=== PATIENT | male | born 1980 | race Caucasian/White ===

== ENCOUNTER 2019-04-18 08:19 | Outpatient (CLI) | payer OTHER, SELFPAY ==
--- NOTE | ~2019-04-18 | XR_ITS ---
XR wrist RT w scaphoid 04/18/2019 08:56 Indication: Right wrist pain Procedure: 5 views of the right wrist including scaphoid view Comparison: No prior studies for comparison. Findings: There is mild-moderate osteoarthritis of the triscaphe joint. No acute fracture or traumati c malalignment. No focal soft tissue abnormality. No radiopaque foreign bodies. There is lucency at t he proximal pole of the scaphoid, possibly a degenerative cyst. Impression: 1: Mild-moderate osteoarthritis of the triscaphe joint.. Reviewed, dictated and finalized at location A. ONIZER TESTER Impression: 1: Mild-moderate osteoarthritis of the triscaphe joint..
== END 2019-04-18 08:20 ==
PROVIDERS: PCP Family Medicine; Visit Provider Surgery Plastic and Reconstructive Surgery
DX: M19.031 Primary osteoarthritis, right wrist (principal)
CPT/HCPCS: 73110

== ENCOUNTER 2022-07-20 00:01 | Emergency (ER) | payer OTHER, SELFPAY ==
--- NOTE | ~2022-07-20 | XR_ITS ---
EXAMINATION: XR hand LT min 3V INDICATION: Left hand pain TECHNIQUE: Three views of the left hand are obtained. COMPARISON: None available FINDINGS: Bone alignment is normal. There is no fracture. There is mild osteoarthritis of multiple in terphalangeal joints. The soft tissues are unremarkable. IMPRESSION: 1. No acute osseous abnormality. Reviewed, dictated and finalized at location A.
[2022-07-20 00:07] VITALS: BP 140/95; PULSE 83; RESP 16; TEMP 36.7; O2SAT 98
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
== END 2022-07-20 02:40 | disposition home or self-care (01) ==
PROVIDERS: Emergency Provider Emergency Medicine; PCP Family Medicine
DX: S60.222A Contusion of left hand, initial encounter (principal); K21.9 Gastro-esophageal reflux disease without esophagitis; E78.1 Pure hyperglyceridemia; V86.59XA Driver of other special all-terrain or other off-road motor vehicle injured in nontraffic accident, initial encounter
CPT/HCPCS: 73130; 99283

== ENCOUNTER 2022-12-08 07:30 | Outpatient (RCR) | payer OTHER, SELFPAY ==
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
--- NOTE | 2022-11-12 08:51 | OPREHPOC ---
Outpatient Therapy Plan of Care This is a Multidisciplinary Plan of Care that may contain components documented by all disciplines (PT, OT, and ST.) OT Problem 1 OT Problem #1 Knowledge Deficit OT Goal 1 Goal Patient to be independent with instructed materials. Target Visit 4 OT Problem 2 OT Problem #2 Pain OT Goal 1 Goal Patient to report reduced pain in the left hand, reporting 2/10 or less with gross gripping and hand use. Target Visit 4 OT Problem 3 OT Problem #3 Impaired Flexibility OT Goal 1 Goal Patient to be able to fire lumbricals and interossei through full ROM without pain. Target Visit 4 OT Problem 4 OT Problem #4 Impaired Strength OT Goal 1 Goal Patient to be able to complete strengthening of the lumbricals and interossei with at least yellow putty x5 minutes without reports of pain. Target Visit 4
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
== END 2022-12-08 13:20 | disposition home or self-care (01) ==
LOC: ANHOT 07:30
PROVIDERS: PCP Family Medicine; Visit Provider Plastic Surgery
DX: M25.642 Stiffness of left hand, not elsewhere classified (principal); M79.642 Pain in left hand
CPT/HCPCS: 97110; 97165

== ENCOUNTER 2025-01-02 13:20 | Emergency (ER) | payer OTHER, SELFPAY ==
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
--- NOTE | ~2025-01-02 | CT_ITS ---
EXAMINATION: CT BRAIN W/O DATE: 01/02/2025 15:35 INDICATION: Dizziness. TECHNIQUE: Computed tomography (CT) of the head was performed without intravenous contrast. The dose-length product was 681.00 mGy-cm. Automated exposure control and iterative reconstruction technique were employed. COMPARISON: No prior studies for comparison. FINDINGS: Normal brain parenchymal volume for age. Normal moe-white differentiation. No acute intracranial hemorrhage, infarction, mass or mass effect. No ventriculomegaly or midline shift. Midline sagittal images demonstrate a normal corpus callosum, craniovertebral junction and sella turcica. Basilar cisterns are patent. Mild mucosal thickening of the maxillary and ethmoid sinuses. Mastoids are pneumatized. No depressed skull fractures. IMPRESSION: 1. No acute intracranial abnormality. Reviewed, dictated and finalized at location O. 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
[2025-01-02 13:34] VITALS: BP 145/99; PULSE 86; RESP 20; TEMP 36.6; O2SAT 96
--- OUTSIDE RECORDS SUMMARY | 2025-01-02 14:35 | XMS_ITS | Clinical Summary ---
Author Organization [facility] Address [address] [place] [address] Care Team Providers Care Sew On Operator Name Role Phone Sidney Ross MD Primary Care Provider [phone] Allergies Active Allergy Reactions Criticality Noted Date Comments Codeine Itching High 05/23/2019 PT. HAS SEVERE SKIN CRAWLING REACTION Penicillins Rash High 05/23/2019 Medications lisinopriL (PRINIVIL) 10 mg tablet Take 10 mg by mouth daily. 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 Gender Identity Not on file Sexual Orientation Not on file Last Filed Vital Signs Vital Sign Reading Time Taken Comments Blood Pressure 121/76 05/23/2019 10:42 AM CDT Pulse 76 05/23/2019 10:42 AM CDT Temperature 36.6 C (97.9 F) 05/23/2019 10:42 AM CDT Respiratory Rate - - Oxygen Saturation 97% 05/23/2019 10: 42 AM CDT Inhaled Oxygen Concentration - - Weight 111.3 kg (245 lb 4.8 oz) 020 10:42 AM CDT Height 175.3 cm (5' 9) 05/23/2019 10:4 2 AM CDT Body Mass Index 36.22 05/23/2019 10:42 AM CDT Plan of Treatment Health Maintenance Due Date Last Done Comments DTAP/TDAP/TD VACCINES (1 - Tdap) 1997 HEPATITIS B VACCINES (1 of 3 - 19+ 3-dose series) 1997 COLORECTAL SCREENING 10/21/2023 Colorectal Cancer Screening 10/21/2023 FIT-DNA Q 3 years 10/21/2023 FIT/FOBT Q 1 year 10/21/2023 Flex Sig/CT Colonography Q 5 years 10/21/2023 INFLUENZA VACCINE (#1) 2024 HPV VACCINES Aged Out No longer eligi ble based on patient's age to complete this topic Care Teams Sew On Operator Relationship Specialty Start Date End Date Sidney Ross MD [address] [facility] [address] [place] [address] PCP - General Family Practice 04/13/19
--- OUTSIDE RECORDS SUMMARY | 2025-01-02 14:36 | XMS_ITS | Clinical Summary ---
Author Organization [facility] Address [address] [place] [address] Care Team Providers Care Lens Assistant Name Role Phone Sidney Ross MD Primary Care Provider [phone] Allergies Active Allergy Reactions Criticality Noted Date Comments Codeine Itching High 05/23/2019 PT. HAS SEVERE SKIN CRAWLING REACTION Penicillins Other (see comment) 01/23/2023 Happened so long ago, I don't remember Medications No known medications Social History Tobacco Use Types Packs/Day Years Used Date Smoking Tobacco: Never Smokeless Tobacco: Never Tobacco Cessation:Counseling Given: Not Answered Alcohol Use Standard Drinks/Week Comments Yes 0 (1 standard drink = 0.6 oz pur e alcohol) Sex and Gender Information Value Date Recorded Sex Assigned at Not on file Legal Sex Male 8:31 PM CDT Gender Identity Not on file Sexual Orientation Not on file Last Filed Vital Signs Vital Sign Reading Time Taken Comments Blood Pressure 140/93 01/23/2023 9:34 PM 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 VICE PRESIDENT [employer] (EX ) Temperature 36.6 C (97.9 F) 01/23/2023 8:16 PM CONSULTANT LUXURY AND AUTO. VICE PRESIDENT [employer]AR [employer] (EX ) Respiratory Rate 23 01/23/2023 9:34 PM CONSULTANT LUXURY AND AUTO. VICE PRESIDENT [employer]UAR [employer] (EX ) Oxygen Saturation 96% 01/23/2023 9:34 PM CONSULTANT LUXURY AND AUTO. VICE PRESIDENT J[employer]AR [employer] (EX ) Inhaled Oxygen Concentration - - Weight 113.4 kg (250 lb) 01/23/2023 8:16 PM CONSULTANT LUXURY AND AUTO. VICE PRESIDENT J[employer]AR [employer] (EX ) Height 175.3 cm (5' 9) 01/23/2023 8:16 PM CONSULTANT LUXURY AND AUTO. VICE PRESIDENT J[employer]AR [employer] (EX ) Body Mass Index 36.92 01/23/2023 8:16 PM CONSULTANT LUXURY AND AUTO. VICE PRESIDENT J[employer]UAR [employer] (EX ) Plan of Treatment Health Maintenance Due Date Last Done Comments Colorectal Cancer Screening Colonoscopy (10 Years) 1978 Annual Physical 1981 DTaP, Tdap and Td Vaccines (5 - Tdap) 1989 06/12/1980, 06/28/1979, 04/26/1979, Additional history exists Hepatitis C 1996 Hepatitis B Vaccines (1 of 3 - 19+ 3-dose series) 1997 COVID-19 Vaccine (1 - 2024- season) 2024 Influenza Adult (#1) 2024 Hepatitis A Vaccines Aged Out No long er eligible based on patient's age to complete this topic Meningococcal B Vaccine Aged Out No l onger eligible based on patient's age to complete this topic Meningococcal Vaccine Aged Out No reyna mahamed eligible based on patient's age to complete this topic Pneumococcal Vaccine: Pediatrics (0 to 5 Years) and At-Risk Patients (6 to 49 Years) Aged Out No longer eligible based on patient's age to complete this topic RSV Immunizations Under 20 Months Aged Out No longer eligible based on patient's age to complete this topic Insurance Care Teams Lens Assistant Relationship Specialty Start Date End Date Sidney Ross MD [address] [place] [address] PCP - General FAMILY PRACTICE 01/23/23
--- OUTSIDE RECORDS SUMMARY | 2025-01-02 14:36 | XMS_ITS | Encounter Summary ---
Author Organization [facility] Address [address] [place] [address] Care Team Providers Care Cad Cam Programmer Name Role Phone Sidney Ross MD Primary Care Provider [phone] Encounter Details Date Type Department Care Team (Late st Contact Info) Description 10/02/1998 Outpatient Historical [facility] Family Medicine [address] [place] [address] Norris Rodriguez, DO [address] [facility] [address] [place] [address] Social History Tobacco Use Types Packs/Day Years Used Date Smoking Tobacco: Never Assessed Sex and Gender Information Value Date Recorded Sex Assigned at Not on file 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
[2025-01-02 15:32] LABS: Estimated CRCL calculation 87 ml/min; Estimated Glomerular Filt Rate > 60
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
--- OUTSIDE RECORDS SUMMARY | 2025-01-02 16:09 | XMS_ITS | Encounter Summary ---
Author Organization [facility] Address 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
--- OUTSIDE RECORDS SUMMARY | 2025-01-02 16:09 | XMS_ITS | Clinical Summary ---
Author Organization [facility] Address [address] [place] [address] Care Team Providers Care Branch Mechanic Name Role Phone Sidney Ross MD Primary Care Provider Allergies Active Allergy Reactions Criticality Noted Date [...] Comments Blood Pressure 140/93 01/23/2023 9:34 PM HACK SAW OPERATOR Pulse 78 01/23/2023 9:34 PM HACK SAW OPERATOR Temperature 36.6 C (97.9 F) 01/23/2023 8:16 PM HACK SAW OPERATOR Respiratory Rate 23 01/23/2023 9:34 PM HACK SAW OPERATOR Oxygen Saturation 96% 01/23/2023 9:34 PM HACK SAW OPERATOR Inhaled Oxygen Concentration - - Weight 113.4 kg (250 lb) 01/23/2023 8:16 PM HACK SAW OPERATOR Height 175.3 cm (5' 9) 01/23/2023 8:16 PM HACK SAW OPERATOR Body Mass Index 36.92 01/23/2023 8:16 PM HACK SAW OPERATOR Plan of Treatment Health Maintenance Due Date [...] to complete this topic Insurance Care Teams Branch Mechanic Relationship Specialty Start Date End Date Sidney Ross MD [address] [place] [address] PCP - General FAMILY PRACTICE 01/23/23
--- OUTSIDE RECORDS SUMMARY | 2025-01-02 16:09 | XMS_ITS | Clinical Summary ---
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
[2025-01-02 17:02] VITALS: BP 157/99; PULSE 78; RESP 20; O2SAT 99
== END 2025-01-02 17:04 | disposition home or self-care (01) ==
PROVIDERS: Emergency Provider Physician Assistant; PCP Family Medicine
DX: R07.89 Other chest pain (principal); E78.1 Pure hyperglyceridemia; K21.9 Gastro-esophageal reflux disease without esophagitis; V43.52XA Car driver injured in collision with other type car in traffic accident, initial encounter
CPT/HCPCS: 70450; 71260; 72125; 72129; 72132; 74177; 99284; Q9967